=== PATIENT | male | born 1990 | race Caucasian/White ===

== ENCOUNTER 2017-11-19 20:11 | Emergency (ER) | payer SELFPAY ==
[~2017-11-19] VITALS: Ht 175.3 cm; Wt 91.0 kg
[2017-11-19 20:36] VITALS: BP 150/75
[2017-11-19] MEDS ORDERED: IBUPROFEN 600MG TABLET ONE (20:36)
[2017-11-19] MEDS ORDERED: IBUPROFEN 600MG TABLET PO ONE (20:45)
== END 2017-11-19 21:50 | disposition left against medical advice (07) ==
LOC: ER 20:11
DX: H92.01 Otalgia, right ear (principal); R42 Dizziness and giddiness; F17.200 Nicotine dependence, unspecified, uncomplicated
CPT/HCPCS: 99282